=== PATIENT | male | born 2000 | race Caucasian/White ===

== ENCOUNTER 2022-09-05 12:45 | Emergency (ER) | payer MEDICAID ==
[~2022-09-05] VITALS: Ht 190.5 cm; Wt 82.3 kg
[2022-09-05 12:51] VITALS: BP 106/72
[2022-09-05] MEDS ORDERED: dexamethasone sod phosphate 10mg/ml inj PO STA (14:37)
[2022-09-05] MEDS ORDERED: AMOX-117 PO (15:03)
== END 2022-09-05 15:21 | disposition home or self-care (01) ==
LOC: ER 12:45
DX: J20.9 Acute bronchitis, unspecified (principal)
CPT/HCPCS: 87880; 99283; J1100